=== PATIENT | female | born 1955 | race Caucasian/White ===

== ENCOUNTER → 2017-04-05 09:31 | Day surgery (SDC) | payer MEDICAID, SELFPAY ==
[2017-04-05 09:40] VITALS: BP 169/85; PULSE 92; RESP 22; TEMP 36.5; O2SAT 94; BMI 42.0
[2017-04-05 10:57] VITALS: BP 147/86; PULSE 77; RESP 20; O2SAT 95
--- NOTE | 2017-04-05 10:58 | HMH.PMPROC ---
- Procedure Date: 04/05/17 Time: 11:08 Anesthesiologist:: Luis Daniel Ocampo MD Complications:: None Pre-procedure Diagnosis:: Degenerative disc disease are spine multiple levels with postlaminectomy syndrome and lumbar radiculopathy symptoms Post-procedure Diagnosis:: Same Indications for Procedure:: This patient is a pleasant 61-year-old white female who we are treating for low back pain with lumbar radiculopathy symptoms and postlaminectomy syndrome. She has an intrathecal Dilaudid pain pump in place. She did have a fall in January and since then she has had increasing pain. Prior to this fall she was doing well. We will bolus her intrathecal infusion today and increase her infusion along with increasing her PTC. She will receive a 0.2 mg bolus over 10 minutes prior to her procedure. We will also increase her intrathecal infusion to 0.6 mg per day from 0.35 and per day. We will also increase her PTC to 0.06 mg up to 4 times a day as needed. She does have an antalgic gait. She does walk with a cane. Motor strength of the lower extremities is 5/5. There is no gross sensory deficit. Procedure Details:: Informed consent was obtained and the risks and benefits of the procedure was explained to the patient. The patient was taken to the procedure room. The pump was interrogated. The area over the pump was prepped using ChloraPrep. The pump was accessed with a 22-gauge needle. Approximately 8 mL's of the intrathecal solution was withdrawn and discarded. The pump was then refilled with 20 mL's of intrathecal hydromorphone 5 mg/mL. The pump was interrogated and the infusion was increased to 0.6 mg per day after a bolus of 0.2 mg over 10 minutes. Patient did get relief after the bolus. PTC was increased to 0.06 mg 4 times a day as needed. The patient tolerated the procedure well with no complication. Plan and Disposition:: We will follow-up with her in 2 weeks and make further adjustments as needed.
[2017-04-05 10:59] VITALS: BP 138/89; PULSE 76; RESP 20; O2SAT 92
[2017-04-05 11:09] VITALS: BP 155/86; PULSE 80; RESP 18; O2SAT 91
--- NOTE | 2017-04-05 15:47 | PC.PHONENOTE ---
called in a prescription for lyrical 75mg bid with 2 refills to [facility] [phone]
== END ==
PROVIDERS: Family Provider Family Medicine; PCP Family Medicine; Visit Provider Anesthesiology
DX: M51.16 Intervertebral disc disorders with radiculopathy, lumbar region (principal); M96.1 Postlaminectomy syndrome, not elsewhere classified
CPT/HCPCS: 62370

== ENCOUNTER → 2017-04-29 09:55 | Outpatient (POV) | payer MEDICAID, SELFPAY ==
[2017-04-29 10:04] VITALS: BP 115/54; PULSE 84; RESP 24; O2SAT 91; BMI 43.9
--- NOTE | 2017-04-29 11:07 | HMH.PAINSOAP ---
[facility] Pain Management SOAP Note Subjective:: Pleasant 61-year-old white female who presents today to discuss increased pain over her right SI joint. Patient states that her pain pump is doing very well in controlling her back pain she rates her back pain is 0 out of 10 today. Patient is complaining however of right SI joint pain. She states that this is been extremely painful more recently. Patient is on Lyrica 75 mg twice a day. He denies any side effects to this. Patient has been having some pulmonary issues. Patient is scheduled to see a candle molder hand next week. Her current intrathecal pain pump rating is hydromorphone on 5 mg/mL concentration going at 0.6 mg daily. Patient states she does not notice much difference with her PTCs. She denies any side effects including sleepiness, confusion, dizziness. ROS General: no recent weight change, no fever, no sleep disturbances Respiratory: Shortness of breath, low O2 sat. Cardiovascular/Peripheral Vascular: No chest pain, No palpitations, no edema, Gastrointestinal: no incontinence, normal bowel movements reported Genitourinary: no incontinence Musculoskeletal: Lumbar back pain, right SI pain Psychiatric: normal mood/ affect Neurological: [denies weakness in extremities], [denies balance issues] Objective:: Physical Exam General: Alert and oriented x3, no acute distress, pleasant and cooperative, [on room air] Lungs: Resps E/U, Symmetrical chest expansion, Eyes: PERRL Musculoskeletal: Flexion and extension of lumbar spine somewhat guarded secondary to pain, deep tendon reflexes normal, strength in upper and lower extremities [5/5], [abnormal gait noted], positive Torrie's test on the right side. Neurological: speech clear, medical laboratory manager equal, no gross sensory deficits Assessment:: Right sacroiliitis, degenerative disc disease of the lumbar spine, postlaminectomy syndrome Plan:: We will keep the patient's pump settings currently they are due to the efficacy with her back pain. We will schedule the patient for right SI joint extended I asked him to forward on any pulmonology notes that the patient may have after her visit this week. Patient currently on Lyrica 75 mg twice daily. We will increase this to Lyrica 150 mg twice daily. We will also call her in prednisone 20 mg 1 p.o. twice daily for [address] Ocampo has reviewed this and agrees with me. Patient's drug screen been appropriate patients SUZI #[id number] reviewed and appropriate. This note was dictated using voice recognition software and may contain errors or omissions
--- NOTE | 2017-04-29 11:15 | P.CONS_ITS ---
[facility] Pain Management SOAP Note Subjective:: Pleasant 61-year-old white female who presents today to discuss increased pain over her right SI joint. Patient states that her pain pump is doing very well in controlling her back pain she rates her back pain is 0 out of 10 today. Patient is complaining however of right SI joint pain. She states that this is been extremely painful more recently. Patient is on Lyrica 75 mg twice a day. He denies any side effects to this. Patient has been having some pulmonary issues. Patient is scheduled to see a franchise field consultant next week. Her current intrathecal pain pump rating is hydromorphone on 5 mg/mL concentration going at 0.6 mg daily. Patient states she does not notice much difference with her PTCs. She denies any side effects including sleepiness, confusion, dizziness. ROS General: no recent weight change, no fever, no sleep disturbances Respiratory: Shortness of breath, low O2 sat. Cardiovascular/Peripheral Vascular: No chest pain, No palpitations, no edema, Gastrointestinal: no incontinence, normal bowel movements reported Genitourinary: no incontinence Musculoskeletal: Lumbar back pain, right SI pain Psychiatric: normal mood/ affect Neurological: [denies weakness in extremities], [denies balance issues] Objective:: Physical Exam General: Alert and oriented x3, no acute distress, pleasant and cooperative, [ on room air] Lungs: Resps E/U, Symmetrical chest expansion, Eyes: PERRL Musculoskeletal: Flexion and extension of lumbar spine somewhat guarded secondary to pain, deep tendon reflexes normal, strength in upper and lower extremities [5/5], [abnormal gait noted], positive Torrei's test on the right side. Neurological: speech clear, cloth bolt bander equal, no gross sensory deficits Assessment:: Right sacroiliitis, degenerative disc disease of the lumbar spine, postlaminectomy syndrome Plan:: We will keep the patient's pump settings currently they are due to the efficacy with her back pain. We will schedule the patient for right SI joint extended I asked him to forward on any pulmonology notes that the patient may have after her visit this week. Patient currently on Lyrica 75 mg twice daily. We will increase this to Lyrica 150 mg twice daily. We will also call her in prednisone 20 mg 1 p.o. twice daily for [address] Ocampo has reviewed this and agrees with me. Patient's drug screen been appropriate patients SUZI # [id number] reviewed and appropriate. This note was dictated using voice recognition software and may contain errors or omissions
--- NOTE | 2017-05-01 08:10 | PC.PHONENOTE ---
04/29/17-called in Rx for Lyrica 150mg BID with 2 refills and Medrol dose pack to pt's pharmacy
== END ==
PROVIDERS: Family Provider Family Medicine; PCP Family Medicine; Visit Provider Clinical Nurse Specialist Family Health
DX: M46.1 Sacroiliitis, not elsewhere classified (principal)
CPT/HCPCS: 99212

== ENCOUNTER → 2017-09-23 11:20 | Outpatient (POV) | payer MEDICAID, SELFPAY ==
--- NOTE | 2017-09-23 11:38 | HMH.PAINSOAP ---
[facility] Pain Management SOAP Note Subjective:: Patient is a pleasant 61-year-old white female who presents today for follow-up after right SI joint injection. Patient also has an intrathecal pain, with Dilaudid going at 0.8 mg per day. Patient denies pain today. Patient states she is comfortable where she is. Pain is on home O2. Patient states he does not notice the pump doing much for her pain I offered to turn it down and she declined this. ROS General: no recent weight change, no fever, no sleep disturbances Respiratory: no cough, no shortness of air, no recurring pulmonary infections Cardiovascular/Peripheral Vascular: No chest pain, No palpitations, no edema, no shortness of breath. Gastrointestinal: no incontinence, normal bowel movements reported Genitourinary: no incontinence Musculoskeletal: Back pain, right hip pain Psychiatric: normal mood/ affect Neurological: [denies weakness in extremities], [denies balance issues] Objective:: Physical Exam General: Alert and oriented x3, no acute distress, pleasant and cooperative, on O2 Lungs: Resps E/U, Symmetrical chest expansion, Eyes: PERRL Musculoskeletal: Flexion and extension of lumbar spine somewhat guarded secondary to pain, deep tendon reflexes normal, strength in upper and lower extremities [5/5], [abnormal gait noted] Neurological: speech clear, stone mason equal, no gross sensory deficits Assessment:: Degenerative disc disease of the lumbar spine with lumbar radiculopathy and sacroiliitis Plan:: I will follow-up with this patient and her next intrathecal pain pump refill. Patient has been instructed to call the office if she has any issues prior to her next appointment. This note was dictated using voice recognition software and may contain errors or omissions
--- NOTE | 2017-09-23 11:41 | P.CONS_ITS ---
[facility] Pain Management SOAP Note Subjective:: Patient is a pleasant 61-year-old white female who presents today for follow-up after right SI joint injection. Patient also has an intrathecal pain, with Dilaudid going at 0.8 mg per day. Patient denies pain today. Patient states she is comfortable where she is. Pain is on home O2. Patient states he does not notice the pump doing much for her pain I offered to turn it down and she declined this. ROS General: no recent weight change, no fever, no sleep disturbances Respiratory: no cough, no shortness of air, no recurring pulmonary infections Cardiovascular/Peripheral Vascular: No chest pain, No palpitations, no edema, no shortness of breath. Gastrointestinal: no incontinence, normal bowel movements reported Genitourinary: no incontinence Musculoskeletal: Back pain, right hip pain Psychiatric: normal mood/ affect Neurological: [denies weakness in extremities], [denies balance issues] Objective:: Physical Exam General: Alert and oriented x3, no acute distress, pleasant and cooperative, on O2 Lungs: Resps E/U, Symmetrical chest expansion, Eyes: PERRL Musculoskeletal: Flexion and extension of lumbar spine somewhat guarded secondary to pain, deep tendon reflexes normal, strength in upper and lower extremities [5/5], [abnormal gait noted] Neurological: speech clear, salad bar clerk equal, no gross sensory deficits Assessment:: Degenerative disc disease of the lumbar spine with lumbar radiculopathy and sacroiliitis Plan:: I will follow-up with this patient and her next intrathecal pain pump refill. Patient has been instructed to call the office if she has any issues prior to her next appointment. This note was dictated using voice recognition software and may contain errors or omissions
[2017-09-23 11:43] VITALS: BP 129/69; PULSE 75; RESP 18; O2SAT 98; BMI 41.8
== END ==
PROVIDERS: Family Provider Family Medicine; PCP Family Medicine; Visit Provider Clinical Nurse Specialist Family Health
DX: M46.1 Sacroiliitis, not elsewhere classified (principal)
CPT/HCPCS: 99212

== ENCOUNTER → 2018-09-09 09:33 | Outpatient (POV) | payer MEDICAID, SELFPAY ==
[2018-09-09 09:50] VITALS: BP 164/68; PULSE 69; RESP 18; O2SAT 98; BMI 41.7
--- NOTE | 2018-09-09 10:00 | HMH.PAINSOAP ---
[facility] Pain Management SOAP Note Subjective:: Patient is a pleasant 62-year-old white female who presents today for follow-up. Patient has been last seen in our office back last year. She has an intrathecal pain pump which is since run dry. She has had some severe health issues however she is doing well at this time she is lost weight she rates her pain an 8 out of 10. She is interested in potentially refilling her intrathecal pain pump. Patient is quite uncomfortable. Most of her pains in her low back and legs. She is on home O2. Review of Systems General: No recent weight changes, no fever, no sleep disturbances Respiratory: No cough, no shortness of air, no recurring pulmonary infections, current oxygen use Cardiovascular/peripheral vascular: No chest pain, no palpitations, no edema, no shortness of breath Gastrointestinal: No new onset incontinence, normal bowel movements reported Genitourinary: No new onset incontinence Musculoskeletal: Back pain, leg pain Psychiatric: Normal mood/affect Neurological: [Denies weakness in extremities], [denies balance issues] Objective:: Physical exam General: Alert and oriented x3, no acute distress, pleasant and cooperative, on O2 Lungs: Respirations even and unlabored, symmetrical chest expansion Eyes: PERRL Musculoskeletal: Flexion and extension of lumbar spine somewhat guarded secondary to pain, deep tendon reflexes normal, strength in upper and lower extremities [5/5], [abnormal gait noted] Neurological: Speech clear, crm marketing executive equal, no gross sensory deficit Assessment:: Degenerative disc disease of lumbar lumbar radiculopathy Plan:: We will set the patient up to be refilled with Dilaudid 1 mg/mL we will start her at 0.1 mg/day. We will also start her on gabapentin 300 mg 1 p.o. 3 times daily. This is after discussion with Dr. Ocampo. Dr. Ocampo has reviewed this note and agrees with this plan of care. This note was dictated using voice recognition software and make contain errors or omissions.
--- NOTE | 2018-09-09 10:03 | P.CONS_ITS ---
[facility] Pain Management SOAP Note Subjective:: Patient is a pleasant 62-year-old white female who presents today for follow-up. Patient has been last seen in our office back last year. She has an intrathecal pain pump which is since run dry. She has had some severe health issues however she is doing well at this time she is lost weight she rates her pain an 8 out of 10. She is interested in potentially refilling her intrathecal pain pump. Patient is quite uncomfortable. Most of her pains in her low back and legs. She is on home O2. Review of Systems General: No recent weight changes, no fever, no sleep disturbances Respiratory: No cough, no shortness of air, no recurring pulmonary infections, current oxygen use Cardiovascular/peripheral vascular: No chest pain, no palpitations, no edema, no shortness of breath Gastrointestinal: No new onset incontinence, normal bowel movements reported Genitourinary: No new onset incontinence Musculoskeletal: Back pain, leg pain Psychiatric: Normal mood/affect Neurological: [Denies weakness in extremities], [denies balance issues] Objective:: Physical exam General: Alert and oriented x3, no acute distress, pleasant and cooperative, on O2 Lungs: Respirations even and unlabored, symmetrical chest expansion Eyes: PERRL Musculoskeletal: Flexion and extension of lumbar spine somewhat guarded secondary to pain, deep tendon reflexes normal, strength in upper and lower extremities [5/5], [abnormal gait noted] Neurological: Speech clear, motors assembler equal, no gross sensory deficit Assessment:: Degenerative disc disease of lumbar lumbar radiculopathy Plan:: We will set the patient up to be refilled with Dilaudid 1 mg/mL we will start her at 0.1 mg/day. We will also start her on gabapentin 300 mg 1 p.o. 3 times daily. This is after discussion with Dr. Ocampo. Dr. Ocampo has reviewed this note and agrees with this plan of care. This note was dictated using voice recognition software and make contain errors or omissions.
== END ==
PROVIDERS: PCP Family Medicine; Visit Provider Clinical Nurse Specialist Family Health
DX: M51.16 Intervertebral disc disorders with radiculopathy, lumbar region (principal)
CPT/HCPCS: 99212